=== PATIENT | female | born 1945 | race Caucasian/White ===

== ENCOUNTER → 2017-07-02 | Outpatient (CLI) | payer MEDICARE | LOC: MC.RAD 14:20 | DX: Z12.31 Encounter for screening mammogram for malignant neoplasm of breast (principal) ==

== ENCOUNTER → 2021-12-14 | Outpatient (CLI) | payer MEDICARE | LOC: COL.VAS 09:52 | DX: R42 Dizziness and giddiness (principal) ==

== ENCOUNTER 2022-02-14 11:00 | Outpatient (RCR) | payer MEDICARE | END 2022-03-04 | disposition home or self-care (01) | LOC: MKS.ESL.PT | DX: R42 Dizziness and giddiness (principal) ==

== ENCOUNTER 2022-03-19 13:00 | Outpatient (RCR) | payer MEDICARE | END 2022-04-04 | disposition home or self-care (01) | LOC: MKS.ESL.PT | DX: R42 Dizziness and giddiness (principal) ==